=== PATIENT | female | born 1990 | race Two or more races ===

== ENCOUNTER 2019-12-31 08:04 | Inpatient (IN) | payer MEDICAID, OTHER ==
[~2019-12-31] VITALS: Ht 165.1 cm; Wt 96.7 kg
[2019-12-31 08:45] LABS: Eosinophils # (auto) 0 10 ^3/uL (0-0.8); Mean Corpuscular Volume 81.1 fL (80.0-100.0); Monocytes # (auto) 0.7 10 ^3/uL (0-1.3); Red Cell Distribution Width 14.8 % (11.8-14.3)
[2019-12-31 08:47] LABS: Basophils # (auto) 0 10 ^3/uL (0-0.2); Basophils % (auto) 0.1 % (0.0-2.0); Eosinophils % (auto) 0.1 % (0.0-7.0); Hematocrit 41.6 % (36.0-46.0); Hemoglobin 13.4 g/dL (12.2-16.2); Lymphocytes # (auto) 2.3 10 ^3/uL (0.4-5.4); Lymphocytes % (auto) 14.8 % (10.0-50.0); Mean Corpuscular Hemoglobin 26.1 pg (28.0-32.0); Mean Corpuscular Hgb Conc. 32.2 g/dL (32.0-36.0); Monocytes % (auto) 4.6 % (0.0-12.0); Neutrophils # (auto) 12.6 10 ^3/uL (1.6-8.6); Neutrophils % (auto) 80.4 % (37.0-80.0); Platelet Count (auto) 303 10^3/uL (140-450); Red Blood Cells 5.13 10^6/uL (4.0-5.20); White Blood Cell 15.7 10^3/uL (4.4-10.8)
[2019-12-31 08:54] LABS: Albumin 3.6 g/dL (3.4-5.0); Calcium 9.2 mg/dL (8.5-10.1); Potassium 3.1 mmol/L (3.5-5.1)
[2019-12-31] MEDS ORDERED: SODIUM CHLORIDE 0.9% 1,000 ML IV ONE ×3 (09:04→15:00)
[2019-12-31 09:05] LABS: BUN/Creatinine Ratio 13.2; Bilirubin, Total 1.1 mg/dL (0.2-1.0); Total Protein 7.9 g/dL (6.4-8.2)
[2019-12-31] MEDS ORDERED: MORPHINE SULFATE 4 MG/ML SYR/VIAL IV ONE (09:15)
[2019-12-31] MEDS ORDERED: cefTRIAXone 1GM/50ML D5W 50 ML IV ONE ×2 (09:15→15:00)
[2019-12-31] MEDS ORDERED: ONDANSETRON HCL 4 MG/2 ML VIAL IV ONE (09:15)
[2019-12-31 11:41] LABS: Urine Bacteria NONE SEEN /hpf (None Seen); Urine Blood 3+ /uL (Negative); Urine Specific Gravity 1.013 (1.001-1.035); Urine WBC 14 /hpf (0 - 5)
[2019-12-31] MEDS ORDERED: IOHEXOL 300 MG/ML 100ML BOTTLE IJ ONE (13:34)
[2019-12-31] MEDS ORDERED: MORPHINE SULF INJ 2 MG/ML SYRINGE 1ML IV PRN (15:00)
[2019-12-31] MEDS ORDERED: NITROGLYCERIN 0.4 MG SL TAB SL PRN (15:00)
[2019-12-31] MEDS: SODIUM CHLORIDE 0.9% 1,000 ML IV SCH ×2 (15:14→21:35)
[2019-12-31] MEDS: metroNIDAZOLE 500MG/100ML 100 ML IV SCH ×2 (15:40→23:50)
[2019-12-31] MEDS: MORPHINE SULF INJ 2 MG/ML SYRINGE 1ML IV PRN (18:25)
[2019-12-31] MEDS: PROMETHAZINE HCL 25 MG/ML 1ML IV PRN (18:26)
[2019-12-31 19:03] VITALS: BP 155/67
[2019-12-31 22:00] VITALS: BP 115/65
[2019-12-31] MEDS: FAMOTIDINE (10MG/ML) 2ML VL IV SCH (23:50)
[2020-01-01] MEDS: SODIUM CHLORIDE 0.9% 1,000 ML IV SCH ×3 (04:15→17:35)
[2020-01-01 05:00] VITALS: BP 116/56
[2020-01-01] MEDS: metroNIDAZOLE 500MG/100ML 100 ML IV SCH ×3 (06:25→21:27)
[2020-01-01] MEDS: MORPHINE SULF INJ 2 MG/ML SYRINGE 1ML IV PRN ×3 (06:51→18:59)
[2020-01-01 07:08] LABS: Basophils # (auto) 0 10 ^3/uL (0-0.2); Basophils % (auto) 0.2 % (0.0-2.0); Eosinophils # (auto) 0 10 ^3/uL (0-0.8); Hemoglobin 11.7 g/dL (12.2-16.2); Lymphocytes # (auto) 1.8 10 ^3/uL (0.4-5.4); Mean Corpuscular Hemoglobin 26.3 pg (28.0-32.0); Monocytes # (auto) 0.8 10 ^3/uL (0-1.3)
[2020-01-01 07:10] LABS: Eosinophils % (auto) 0.1 % (0.0-7.0); Hematocrit 35.5 % (36.0-46.0); Lymphocytes % (auto) 14.8 % (10.0-50.0); Mean Corpuscular Hgb Conc. 32.9 g/dL (32.0-36.0); Monocytes % (auto) 6.5 % (0.0-12.0); Neutrophils # (auto) 9.4 10 ^3/uL (1.6-8.6); Neutrophils % (auto) 78.4 % (37.0-80.0); Platelet Count (auto) 248 10^3/uL (140-450); Red Blood Cells 4.44 10^6/uL (4.0-5.20); Red Cell Distribution Width 14.6 % (11.8-14.3); White Blood Cell 11.9 10^3/uL (4.4-10.8)
[2020-01-01 07:24] LABS: Albumin 2.9 g/dL (3.4-5.0); Calcium 8.1 mg/dL (8.5-10.1)
[2020-01-01 07:33] LABS: BUN/Creatinine Ratio 25.5; Bilirubin, Total 0.6 mg/dL (0.2-1.0); Total Protein 6.2 g/dL (6.4-8.2)
[2020-01-01 07:43] LABS: Potassium 2.8 mmol/L (3.5-5.1)
[2020-01-01] MEDS ORDERED: POTASSIUM CHLORIDE 60 MEQ, LIDOCAINE 1% (LOCAL ANESTH.) 6 ML in SODIUM CHL 0.9% 500 ML IV ONE (08:00)
[2020-01-01] MEDS: FAMOTIDINE (10MG/ML) 2ML VL IV SCH ×2 (09:11→21:26)
[2020-01-01] MEDS: cefTRIAXone 1GM/50ML D5W 50 ML IV SCH (09:12)
[2020-01-01 09:32] VITALS: BP 132/53
[2020-01-01 12:59] VITALS: BP 116/79
[2020-01-01] MEDS ORDERED: CLINIMIX PER PHARMACY 0 ML IV SCH (16:00)
[2020-01-01 17:23] VITALS: BP 136/80
[2020-01-01] MEDS ORDERED: AMINO ACID INFUSION IN D5W 1,000 ML IV NR (20:00)
[2020-01-01 20:34] LABS: Cholesterol 117 mg/dL (< 200)
[2020-01-01 20:37] LABS: HDL Cholesterol 55 mg/dL (40-59); LDL Cholesterol 53 mg/dL (< 100); Triglycerides 83 mg/dL (< 150)
[2020-01-01] MEDS ORDERED: POTASSIUM CHLORIDE 20 MEQ, LIDOCAINE 1% (LOCAL ANESTH.) 2 ML in SODIUM CHL 0.9% 100 ML IV ONE (20:45)
[2020-01-01] MEDS ORDERED: POTASSIUM CHL 20MEQ/100ML 100 ML IV ONE (21:45)
[2020-01-01 22:01] VITALS: BP 134/68
[2020-01-02] MEDS ORDERED: DEXTROSE (50%) 50ML SYRG IV SCH
[2020-01-02] MEDS: SODIUM CHLORIDE 0.9% 1,000 ML IV SCH ×4 (00:15→20:29)
[2020-01-02] MEDS: ACCU-CHEK COMFORT CURVE STRIP VI SCH ×4 (00:20→18:00)
[2020-01-02] MEDS: MORPHINE SULF INJ 2 MG/ML SYRINGE 1ML IV PRN ×3 (03:10→18:14)
[2020-01-02 03:17] LABS: Basophils # (auto) 0 10 ^3/uL (0-0.2); Basophils % (auto) 0.3 % (0.0-2.0); Eosinophils # (auto) 0 10 ^3/uL (0-0.8); Eosinophils % (auto) 0.1 % (0.0-7.0); Lymphocytes # (auto) 2.2 10 ^3/uL (0.4-5.4)
[2020-01-02 03:19] LABS: Hematocrit 32.2 % (36.0-46.0); Hemoglobin 10.4 g/dL (12.2-16.2); Lymphocytes % (auto) 16.9 % (10.0-50.0); Mean Corpuscular Hgb Conc. 32.4 g/dL (32.0-36.0); Mean Corpuscular Volume 80.2 fL (80.0-100.0); Monocytes % (auto) 7.6 % (0.0-12.0); Neutrophils # (auto) 9.7 10 ^3/uL (1.6-8.6); Neutrophils % (auto) 75.1 % (37.0-80.0); Nucleated Red Blood Cells % 0.1 %; Platelet Count (auto) 222 10^3/uL (140-450); Red Blood Cells 4.01 10^6/uL (4.0-5.20); Red Cell Distribution Width 14.4 % (11.8-14.3)
[2020-01-02 03:38] LABS: Albumin 2.5 g/dL (3.4-5.0); Calcium 7.8 mg/dL (8.5-10.1)
[2020-01-02 03:44] LABS: BUN/Creatinine Ratio 17.1; Bilirubin, Total 0.4 mg/dL (0.2-1.0); Phosphorus 1.5 mg/dL (2.5-4.90); Pre Albumin 12.6 mg/dL (20.0-40.0); Total Protein 5.7 g/dL (6.4-8.2)
[2020-01-02] MEDS ORDERED: POTASSIUM CHL 20MEQ/100ML 100 ML IV ONE ×2 (04:30→22:00)
[2020-01-02 05:01] VITALS: BP 123/69
[2020-01-02] MEDS: InsuLIN REG 1unit/0.01ml Soln (100units/ml) SC SCH ×4 (06:00→18:00)
[2020-01-02] MEDS: metroNIDAZOLE 500MG/100ML 100 ML IV SCH ×3 (06:56→22:56)
[2020-01-02 09:00] VITALS: BP 116/61
[2020-01-02] MEDS ORDERED: POTASSIUM CHLORIDE 20 MEQ, LIDOCAINE 1% (LOCAL ANESTH.) 2 ML in SODIUM CHL 0.9% 100 ML IV ONE (09:15)
[2020-01-02] MEDS: cefTRIAXone 1GM/50ML D5W 50 ML IV SCH (09:30)
[2020-01-02] MEDS: ENOXAPARIN SOD 40 MG/0.4 ML SYRINGE SC SCH (09:34)
[2020-01-02] MEDS: FAMOTIDINE (10MG/ML) 2ML VL IV SCH ×2 (09:34→22:56)
[2020-01-02] MEDS ORDERED: POTASSIUM PHOSPHATE 22 MEQ in SODIUM CHL 0.9% 100 ML IV ONE (12:00)
[2020-01-02 13:00] VITALS: BP 134/76
[2020-01-02] MEDS: PROMETHAZINE HCL 25 MG/ML 1ML IV PRN (13:50)
[2020-01-02 17:00] VITALS: BP 104/74
[2020-01-02] MEDS ORDERED: levoFLOXacin 500MG 100 ML IV ONE (19:45)
[2020-01-02] MEDS ORDERED: PPN PER PHARMACY IV NR ×7 (20:00)
[2020-01-02] MEDS ORDERED: ACETAMINOPHEN 325 MG TAB PO PRN (22:00)
[2020-01-02 22:01] VITALS: BP 133/69
[2020-01-03] MEDS ORDERED: POTASSIUM CHL 20MEQ/100ML 100 ML IV ONE ×3 (02:30→16:00)
[2020-01-03] MEDS: SODIUM CHLORIDE 0.9% 1,000 ML IV SCH ×2 (02:56→10:00)
[2020-01-03 05:00] VITALS: BP 136/75
[2020-01-03 05:20] LABS: Basophils # (auto) 0 10 ^3/uL (0-0.2); Basophils % (auto) 0.2 % (0.0-2.0); Eosinophils # (auto) 0 10 ^3/uL (0-0.8); Eosinophils % (auto) 0.2 % (0.0-7.0); Hematocrit 30.2 % (36.0-46.0); Lymphocytes # (auto) 1.6 10 ^3/uL (0.4-5.4); Lymphocytes % (auto) 12.2 % (10.0-50.0); Mean Corpuscular Hemoglobin 26.7 pg (28.0-32.0); Mean Corpuscular Hgb Conc. 33.2 g/dL (32.0-36.0); Mean Corpuscular Volume 80.5 fL (80.0-100.0); Monocytes # (auto) 0.9 10 ^3/uL (0-1.3); Monocytes % (auto) 7.3 % (0.0-12.0); Neutrophils # (auto) 10.3 10 ^3/uL (1.6-8.6); Neutrophils % (auto) 80.1 % (37.0-80.0); Platelet Count (auto) 206 10^3/uL (140-450); Red Blood Cells 3.76 10^6/uL (4.0-5.20); Red Cell Distribution Width 14.3 % (11.8-14.3); White Blood Cell 12.8 10^3/uL (4.4-10.8)
[2020-01-03 05:38] LABS: Albumin 2.2 g/dL (3.4-5.0); Calcium 7.8 mg/dL (8.5-10.1); Magnesium 1.9 mg/dL (1.6-2.6); Potassium 3.2 mmol/L (3.5-5.1)
[2020-01-03 05:44] LABS: BUN/Creatinine Ratio 12.8; Bilirubin, Total 0.4 mg/dL (0.2-1.0); Phosphorus 2.2 mg/dL (2.5-4.90); Total Protein 5.9 g/dL (6.4-8.2)
[2020-01-03] MEDS: InsuLIN REG 1unit/0.01ml Soln (100units/ml) SC SCH ×5 (06:00→23:32)
[2020-01-03] MEDS: ACCU-CHEK COMFORT CURVE STRIP VI SCH ×5 (06:00→23:32)
[2020-01-03] MEDS: metroNIDAZOLE 500MG/100ML 100 ML IV SCH ×3 (06:50→23:31)
[2020-01-03 08:48] VITALS: BP 138/86
[2020-01-03] MEDS: ENOXAPARIN SOD 40 MG/0.4 ML SYRINGE SC SCH (10:31)
[2020-01-03] MEDS: FAMOTIDINE (10MG/ML) 2ML VL IV SCH ×2 (10:31→23:30)
[2020-01-03] MEDS ORDERED: PPN PER PHARMACY 0 ML IV SCH (11:15)
[2020-01-03] MEDS ORDERED: SODIUM CHLORIDE 0.9% 1,000 ML IV SCH (11:15)
[2020-01-03] MEDS ORDERED: POTASSIUM PHOSP 22MEQ(15MMOLE) in NS 100 ML IV ONE (12:00)
[2020-01-03 12:43] VITALS: BP 159/67
[2020-01-03 17:29] VITALS: BP 152/88
[2020-01-03] MEDS: PPN PER PHARMACY IV NR ×9 (20:56)
[2020-01-03 21:47] VITALS: BP 133/73
[2020-01-03] MEDS: PROMETHAZINE HCL 25 MG/ML 1ML IV PRN (22:57)
[2020-01-03] MEDS: levoFLOXacin 500MG 100 ML IV SCH (23:31)
[2020-01-04] MEDS: D5W/SOD CHL 0.45%/KCL 20MEQ 1,000 ML IV SCH ×3 (04:05→16:45)
[2020-01-04 05:00] VITALS: BP 117/73
[2020-01-04] MEDS: InsuLIN REG 1unit/0.01ml Soln (100units/ml) SC SCH ×3 (06:00→17:48)
[2020-01-04] MEDS: metroNIDAZOLE 500MG/100ML 100 ML IV SCH ×2 (06:27→13:15)
[2020-01-04] MEDS: ACCU-CHEK COMFORT CURVE STRIP VI SCH ×3 (06:28→17:48)
[2020-01-04 06:29] LABS: Basophils # (auto) 0 10 ^3/uL (0-0.2); Eosinophils # (auto) 0.1 10 ^3/uL (0-0.8); Lymphocytes # (auto) 1.5 10 ^3/uL (0.4-5.4); Monocytes # (auto) 0.9 10 ^3/uL (0-1.3); White Blood Cell 12.7 10^3/uL (4.4-10.8)
[2020-01-04 06:31] LABS: Basophils % (auto) 0.3 % (0.0-2.0); Eosinophils % (auto) 0.7 % (0.0-7.0); Hematocrit 31.2 % (36.0-46.0); Hemoglobin 10.4 g/dL (12.2-16.2); Lymphocytes % (auto) 12.2 % (10.0-50.0); Mean Corpuscular Hemoglobin 26.6 pg (28.0-32.0); Mean Corpuscular Hgb Conc. 33.4 g/dL (32.0-36.0); Mean Corpuscular Volume 79.6 fL (80.0-100.0); Monocytes % (auto) 7.4 % (0.0-12.0); Neutrophils # (auto) 10.1 10 ^3/uL (1.6-8.6); Neutrophils % (auto) 79.4 % (37.0-80.0); Platelet Count (auto) 240 10^3/uL (140-450); Red Blood Cells 3.92 10^6/uL (4.0-5.20); Red Cell Distribution Width 14.4 % (11.8-14.3)
[2020-01-04 06:51] LABS: Potassium 3.2 mmol/L (3.5-5.1)
[2020-01-04 06:58] LABS: Albumin 2.4 g/dL (3.4-5.0); BUN/Creatinine Ratio 16.7; Bilirubin, Total 0.2 mg/dL (0.2-1.0); Calcium 8.3 mg/dL (8.5-10.1); Magnesium 2.2 mg/dL (1.6-2.6); Phosphorus 2.8 mg/dL (2.5-4.90)
[2020-01-04 07:42] LABS: INR 1.15 (0.9-1.15); Partial Thromboplastin Time 30.5 sec (23.64-32.05)
[2020-01-04] MEDS: BUPIVACAINE 0.25% INJ 50ML VIAL ONE ×2 (08:13→11:43)
[2020-01-04] MEDS ORDERED: ceFAZolin 1GM/50ML 50 ML IV ONE (08:45)
[2020-01-04 09:17] VITALS: BP 125/66
[2020-01-04] MEDS ORDERED: POTASSIUM CHL 20MEQ/100ML 100 ML IV ONE (09:45)
[2020-01-04] MEDS ORDERED: LIDOCAINE 1% (LOCAL ANESTH.) PF 5ml SDV ONE (09:58)
[2020-01-04] MEDS ORDERED: SUCCINYLCHOLINE CHLORIDE 20 MG/ML 10ML VIAL IV ONE (09:59)
[2020-01-04] MEDS: ENOXAPARIN SOD 40 MG/0.4 ML SYRINGE SC SCH (10:00)
[2020-01-04] MEDS: FAMOTIDINE (10MG/ML) 2ML VL IV SCH (10:00)
[2020-01-04] MEDS ORDERED: POTASSIUM PHOSPHATE 44 MEQ in D5W 5% 250 ML IV ONE (10:00)
[2020-01-04] MEDS ORDERED: MIDAZOLAM HCL 1MG/1ML-2 ML VIAL ONE (10:13)
[2020-01-04] MEDS ORDERED: METOCLOPRAMIDE HCL 5MG/ml INJ 2ml VIAL ONE (10:15)
[2020-01-04] MEDS ORDERED: ROCURONIUM 10MG/ML 10ML VIAL IV ONE (10:17)
[2020-01-04] MEDS ORDERED: PROPOFOL 10 MG/ML 20 ML IV ONE (10:17)
[2020-01-04] MEDS ORDERED: fentaNYL CITRATE 100 MCG/2 ML VL ONE (10:28)
[2020-01-04] MEDS ORDERED: ONDANSETRON HCL 4 MG/2 ML VIAL IV PRN (10:30)
[2020-01-04] MEDS ORDERED: HYDROmorphone HCL 2 MG/ML VL IV PRN (10:30)
[2020-01-04] MEDS ORDERED: NALOXONE HCL 0.4 MG/ML VIAL IV PRN (10:30)
[2020-01-04] MEDS ORDERED: KETOROLAC TROMETH 30 MG/ML 1ML VIAL ONE (11:12)
[2020-01-04] MEDS ORDERED: NEOSTIGMINE 1 MG/ML INJ (10mg/10ML VIAL) ONE (11:44)
[2020-01-04] MEDS ORDERED: GLYCOPYRROLATE 0.2 MG/ML 1ML VIAL ONE (11:44)
[2020-01-04] MEDS: HYDROmorphone HCL 2 MG/ML VL IV PRN ×2 (11:58→12:10)
[2020-01-04] MEDS: MORPHINE SULF INJ 2 MG/ML SYRINGE 1ML IV PRN ×3 (13:14→21:02)
[2020-01-04] MEDS: MAGNESIUM SULFATE 1GM/100ML 100 ML IV SCH ×2 (16:00→17:30)
[2020-01-04] MEDS: POTASSIUM CHL 20 Meq TABLET PO SCH ×2 (16:00→17:30)
[2020-01-04 17:17] VITALS: BP 136/82
[2020-01-04] MEDS: PPN PER PHARMACY IV NR ×9 (19:50)
[2020-01-04] MEDS ORDERED: PPN PER PHARMACY IV NR ×9 (20:00)
[2020-01-04] MEDS: PROMETHAZINE HCL 25 MG/ML 1ML IV PRN (20:56)
[2020-01-04 22:00] VITALS: BP 123/70
[2020-01-05] MEDS: levoFLOXacin 500MG 100 ML IV SCH (01:24)
[2020-01-05] MEDS: FAMOTIDINE (10MG/ML) 2ML VL IV SCH ×2 (01:25→10:24)
[2020-01-05] MEDS: POTASSIUM CHL 20 Meq TABLET PO SCH (01:26)
[2020-01-05] MEDS: ACCU-CHEK COMFORT CURVE STRIP VI SCH ×4 (01:27→17:14)
[2020-01-05] MEDS: D5W/SOD CHL 0.45%/KCL 20MEQ 1,000 ML IV SCH ×2 (01:28→12:45)
[2020-01-05] MEDS: metroNIDAZOLE 500MG/100ML 100 ML IV SCH ×3 (01:29→13:24)
[2020-01-05] MEDS: MORPHINE SULF INJ 2 MG/ML SYRINGE 1ML IV PRN ×2 (03:10→13:24)
[2020-01-05 05:00] VITALS: BP 142/85
[2020-01-05 05:54] LABS: Albumin 2.5 g/dL (3.4-5.0); Calcium 8.2 mg/dL (8.5-10.1); Potassium 3.9 mmol/L (3.5-5.1)
[2020-01-05] MEDS: InsuLIN REG 1unit/0.01ml Soln (100units/ml) SC SCH ×4 (06:00→17:14)
[2020-01-05 06:01] LABS: BUN/Creatinine Ratio 14.9; Bilirubin, Total 0.2 mg/dL (0.2-1.0); Magnesium 2.3 mg/dL (1.6-2.6); Phosphorus 2.4 mg/dL (2.5-4.90); Total Protein 6.3 g/dL (6.4-8.2)
[2020-01-05 09:00] VITALS: BP 145/85
[2020-01-05] MEDS: ENOXAPARIN SOD 40 MG/0.4 ML SYRINGE SC SCH (10:00)
[2020-01-05 13:00] VITALS: BP 142/86
[2020-01-05 16:50] VITALS: BP 149/86
[2020-01-05 17:14] VITALS: BP 149/86
== END 2020-01-05 18:30 | disposition home or self-care (01) | DRG 263 ==
LOC: ER 08:04 → TELE-CENTR 08:05
PROVIDERS: ADMIT Internal Medicine; ATTEND Internal Medicine
PROC: 0DNW4ZZ Release Peritoneum, Percutaneous Endoscopic Approach (ICD-10-PCS; 2020-01-04)
PROC: 0FT44ZZ Resection of Gallbladder, Percutaneous Endoscopic Approach (ICD-10-PCS; principal; 2020-01-04 10:12)
DX: K80.20 Calculus of gallbladder without cholecystitis without obstruction (principal); K65.1 Peritoneal abscess; K85.10 Biliary acute pancreatitis without necrosis or infection; K56.50 Intestinal adhesions [bands], unspecified as to partial versus complete obstruction; E66.01 Morbid (severe) obesity due to excess calories; D72.829 Elevated white blood cell count, unspecified; N39.0 Urinary tract infection, site not specified; E87.6 Hypokalemia; Z68.35 Body mass index [BMI] 35.0-35.9, adult
CPT/HCPCS: 36415; 71045; 74177; 76705; 80053; 80061; 80320; 81001; 81025; 82040; 82150; 82962; 83690; 83735; 84100; 84132; 84478; 84702; 85025; 85610; 85730; 86850; 86900; 86901; 87040; 96365; 96366; 96367; 96375; G0378; J0330; J0690; J0696; J1885; J1956; J2001; J2250; J2405; J2704; J3480; J3490; J7060